=== PATIENT | male | born 1980 | race Caucasian/White ===

== ENCOUNTER 2022-06-07 06:43 | Outpatient (CLI) | payer BC, SELFPAY ==
--- NOTE | ~2022-06-07 | CT_ITS ---
Pre and postcontrast Head CT History: Dizziness, headache Technique: Axial imaging of the brain was performed prior to and following intravenous administratio n of 100 cc of Omnipaque 350 contrast material. Dose reduction technique was used on this scan by uti lizing automated exposure control and iterative reconstruction technique. The dose-length product (DL P) was 1210.67 mGy-cm. Findings: There is no evidence of intracranial hemorrhage, mass lesion, or acute infarct. Brain par enchyma appears normal. The ventricles and subarachnoid spaces are normal in size. The calvarium ap pears normal. The visualized paranasal sinuses and mastoid air cells are clear. No abnormal postcontrast enhancement seen. Impression: No significant abnormality seen. Reviewed, dictated and finalized at [facility] [place]. Impression: No significant abnormality seen.
== END 2022-06-07 06:44 | disposition home or self-care (01) ==
PROVIDERS: PCP Family Medicine; Visit Provider Family Medicine
DX: G89.29 Other chronic pain (principal); R42 Dizziness and giddiness; R51.9 Headache, unspecified
CPT/HCPCS: 70470; Q9967